=== PATIENT | female | born 1950 | race Caucasian/White ===

== ENCOUNTER 2019-09-20 14:00 | Day surgery (SDC) | payer MEDICARE, OTHER ==
[2019-09-20] VITALS (9 sets, daily range): BP systolic 92–147; BP diastolic 43–61
[~2019-09-20] VITALS: Ht 157.5 cm; Wt 53.0 kg
[~2019-09-20 14:00] MED LIST: HYDR-4383 PO
[2019-09-20] MEDS ORDERED: ASPI-529 PO (14:29)
[2019-09-20] MEDS ORDERED: VITA1TAB20 PO (14:29)
[2019-09-20] MEDS ORDERED: PROP1DRO7 OP (14:29)
[2019-09-20] MEDS ORDERED: IBUP-2417 PO (14:29)
[2019-09-20] MEDS ORDERED: ACET325T55 PO (14:29)
[2019-09-20] MEDS ORDERED: BETA1TAB18 PO (14:29)
[2019-09-20 14:57] LABS: BASOPHILS # (AUTO) 0.1 X10'3 (0-0.2); BASOPHILS % (AUTO) 1.3 % (0-1); EOSINOPHILS # (AUTO) 0.1 X10'3 (0-0.9); EOSINOPHILS % (AUTO) 2.6 % (0-6); HEMATOCRIT 35.1 % (35.0-45.0); HEMOGLOBIN 11.8 g/dl (12.0-16.0); LYMPHOCYTES # (AUTO) 1.4 X10'3 (1.1-4.8); LYMPHOCYTES % (AUTO) 27.8 % (21-51); MEAN CORPUSCULAR HEMOGLOBIN 30.8 PG (27.0-31.0); MEAN CORPUSCULAR HGB CONC 33.6 g/dL (33.0-36.5); MEAN CORPUSCULAR VOLUME 91.6 FL (78-98); MEAN PLATELET VOLUME 7.2 FL (7.4-10.4); MONOCYTES # (AUTO) 0.5 X10'3 (0-0.9); MONOCYTES % (AUTO) 9.6 % (2-12); NEUTROPHILS % (AUTO) 58.7 % (42-75); PLATELET COUNT 297 X10'3 (140-440); RED BLOOD COUNT 3.83 X10'6 (4.20-5.60); RED CELL DISTRIBUTION WIDTH 12.8 % (11.5-14.5); WHITE BLOOD COUNT 5.1 X10'3 (4.5-11.0)
[2019-09-20 15:07] LABS: ALBUMIN 3.5 G/DL (3.4-5.0); ANION GAP 9 (8-16); BLOOD UREA NITROGEN 14 MG/DL (7-18); BUN/CREATININE RATIO 19.7 (6.6-38.0); CALCIUM 8.5 MG/DL (8.5-10.1); CHLORIDE 105 MMOL/L (99-107); CREATININE 0.71 MG/DL (0.40-0.90); GLUCOSE 87 MG/DL (70-104); POTASSIUM 3.4 MMOL/L (3.5-5.1); SODIUM 140 MMOL/L (135-145); TOTAL CARBON DIOXIDE 25.8 MMOL/L (24-32); eGFR 82 ML/MIN
[2019-09-20] MEDS ORDERED: LORazepam 0.5 MG tablet PO PRN (15:10)
[2019-09-20] MEDS ORDERED: normal saline 1,000 ML IV SCH (15:10)
[2019-09-20] MEDS ORDERED: diphenhydrAMINE 25mg capsule PO PRN (15:10)
[2019-09-20] MEDS ORDERED: nitroGLYCERIN-Tridil 50MG/D5W 250 ML IV ONE (15:24)
[2019-09-20] MEDS ORDERED: fentaNYL/PF 50MCG/1 ML 2ML syringe ONE ×2 (15:24→16:04)
[2019-09-20] MEDS ORDERED: iohexol 350MG/ML 100ml bottle IV ONE (15:24)
[2019-09-20] MEDS ORDERED: LIDOcaine 1% (10mg/ml)w/preservative injection 20ml MDV ONE (15:24)
[2019-09-20] MEDS ORDERED: midazolam 2 mg/2 ml injection ONE ×2 (15:24→16:04)
[2019-09-20] MEDS ORDERED: verapamil 2.5 mg/ml inj IV ONE (15:24)
[2019-09-20] MEDS ORDERED: heparin 1,000unit/ml 10ml vial 10 ML ONE (15:24)
[2019-09-20] MEDS ORDERED: HYDROcodone/acetaminophen 10/325mg tab PO PRN (17:15)
[2019-09-20] MEDS ORDERED: OXAZEpam 15mg capsule PO PRN (17:15)
[2019-09-20] MEDS ORDERED: HYDROcodone/acetaminophen 5mg/325mg tablet PO PRN (17:15)
[2019-09-20] MEDS ORDERED: ondansetron/PF 4mg/2ml inj IV PRN (17:15)
[2019-09-20] MEDS ORDERED: acetaminophen 325mg tablet PO PRN (17:15)
[2019-09-20] MEDS ORDERED: proCHLORperazine 10 MG/2 ml inj IV PRN (17:15)
== END 2019-09-20 19:35 | disposition home or self-care (01) ==
LOC: SSTAY O 14:00
PROVIDERS: ATTEND Internal Medicine Interventional Cardiology
DX: R94.39 Abnormal result of other cardiovascular function study (principal); I25.10 Atherosclerotic heart disease of native coronary artery without angina pectoris; J44.9 Chronic obstructive pulmonary disease, unspecified; M81.0 Age-related osteoporosis without current pathological fracture; Z79.01 Long term (current) use of anticoagulants; Z79.899 Other long term (current) drug therapy; Z88.8 Allergy status to other drugs, medicaments and biological substances
CPT/HCPCS: 36415; 80048; 85025; 85610; 93005; 93458; 99152; 99153; C1769; C1894; J1644; J2001; J2250; J3010; Q9967; A4620; A5120; J3490

== ENCOUNTER 2024-12-28 11:00 | Emergency (ER) | payer MEDICARE, OTHER ==
[~2024-12-28] VITALS: Ht 157.5 cm; Wt 55.3 kg
[~2024-12-28 11:00] MED LIST changes: +ACET325T55 PO; +ASPI-529 PO; +BETA1TAB18 PO; -HYDR-4383 PO; +IBUP-2417 PO; +PROP1DRO7 OP; +VITA-290 PO
--- NOTE | 2024-12-28 11:20 | Physician Documentation ---
History of Present Illness Chief Complaint: Abdominal Pain Stated Complaint: ABD PAIN Time Seen by MD: 11:17 Primary Medical Doctor: Dr. 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 She endorses that she is getting abdominal pain for the past 2 days, more over the lower quadrants of the abdomen, near the suprapubic region and bilateral iliac fossa, without any aggravating and relieving factors. She endorses nausea but without vomiting. She reports fever high-grade with chills and recorded temperature of 99.5 at home, abdominal distention. She complained of increased frequency of the micturition. She denied nocturia, urgency, urinary retention. She endorses that he had a couple of episodes of loose stools and subsided and now she is getting regular stools. She had a couple of episodes of suprapubic pain in the last month but she did not take any antibiotic and she took some alternative medicine. She had a colonoscopy in 2009 which showed colonic diverticulosis and internal hemorrhoids. Medication Reconciliation Allergies: Coded Allergies: ephedrine (Verified Allergy, Severe, 02/11/13) pseudoephedrine (Unverified Allergy, Unknown, 09/20/19) Scheduled Aspirin (Baby Aspirin), 81 MG PO DAILY, (Reported) Beta-Carotene(A) W-C & E/Min* (Ocuvite Tablet*), 1 TAB PO DAILY, (Reported) Ibuprofen (Ibuprofen), 200 MG PO TID, (Reported) Vitamin B Complex (Vitamin B Complex), 1 EACH PO DAILY, (Reported) Scheduled PRN Acetaminophen (Acetaminophen), 1 TAB PO Q4HPRN PRN for pain or fever, (Reported) Miscellaneous Medications Propylene Glycol/Peg 400 (Systane 0.3-0.4% Eye Drops), 1 EACH OP, (Reported) Past Medical History Past Medical History: Cataracts, Hemorrhoids, Osteoporosis Other Past Medical History: Age-related macular degeneration Diverticulosis Past Surgical History: abdominal surgery, other Other Past Surgical History: Laparoscopic surgery for endometriosis, eye surgery Smoking Status: Current every day smoker Alcohol Use: None Drug Use: none Lives In: Home Occupation: employed Review of Systems Constitutional: Reports: chills, fever, weakness Eyes: Reports: no symptoms reported ENT: Reports: no symptoms reported Respiratory: Reports: no symptoms reported Cardiovascular: Reports: no symptoms reported Gastrointestinal: Reports: abdomen distended, abdominal pain, nausea, diarrhea Genitourinary: Reports: frequency, hematuria, pain Female Genitalia: Reports: pelvic pain Neurological: Reports: no symptoms reported Musculoskeletal: Reports: no symptoms reported Integumentary: Reports: no symptoms reported Allergic/Immunologic: Reports: no symptoms reported Hematologic/Lymphatic: Reports: no symptoms reported Endocrine: Reports: no symptoms reported Psychiatric: Reports: no symptoms reported Physical Exam Vital Signs: Temperature: 97.1, Source: Temporal, Heart Rate: 87, Respiratory Rate: 16, BP: 139/58, Pulse Oximetry: 99, Weight: 55.300 Oxygen Flow Rate: 0 Pulse Oximetry Reflects: adequate oxygenation General Appearance: alert, WD/WN, no apparent distress EENT: PERRL/EOMI, normal ENT inspection, TMs normal, moist mucous membranes Progress Results/Orders Results/Orders Orders - LEXIE CINTRON RES Add On Test (12/28/24 11:18) Culture Blood (12/28/24 11:18) Lacticsepsis (12/28/24 11:18) Vital Signs 12/28/24 11:02 Temp 97.1 Pulse 87 Resp 16 B/P (MAP) 139/58 Pulse Ox 99 O2 Flow Rate 0 Medical Decision Making Additional information obtaine: old records Findings Pain abdomen likely secondary to interstitial cystitis versus acute diverticulitis Vitals are stable. CBC and CMP showed nothing much changes but urinalysis showed large occult blood in urine. Procalcitonin and lactic acid is normal. Considering her age and symptoms with chronic microscopic hematuria and chronic recurrent suprapubic pain, patient may have probably interstitial cystitis or possible urinary bladder cancerWe are evaluating patient with CT abdomen and pelvis and we are more concerned about the chronic bladder involvement including urothelial cancer Differential Dx:Considerations: Other (See the body of supervisory note for differential diagnosis) Departure Disposition: HOME / SELF CARE / HOMELESS Impression: Primary Impression: Diverticulitis Condition: Improved Discharge Instructions: Diverticulitis Referrals: NO PRIMARY CARE PROVIDER (PCP) Prescriptions Amox Tr/Potassium Clavulanate (Augmentin 875-125 Tablet) 1 Each Tablet 1 TAB PO Q12H for 10 Days, #20 TAB Prov: ADRIAN HARPER DO 12/28/24 Education Educated: Patient Educated regarding: diagnosis, treatment, prognosis, need for follow up Additional Comment Seen with PA/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 I have personally participated in care of this patient, has been present during critical and/or coates portions of the patient's service, participated in the evaluation, and provided major portion of medical decision-making, independently interpreted imaging and laboratory studies and participated in disposition of this patient. In brief, this is a 72-year-old female who went to the [facility] to be evaluated for lower abdominal pain that has been present for the last three days. No obvious trigger provocation. The particular palliating factors, aggravated by breathing and walking. She did not attempt to treat it with the anything other than [id number] medications they did not significantly help. She denies any nausea, vomiting, diarrhea, denies any dysuria hematuria. She reports history of colonoscopy in 2011 at which point she was diagnosed with a diverticulosis, never had diverticulitis. GENERAL: Awake, alert, oriented, GCS 15, no apparent distress, non-toxic appearing, answers questions, follows commands appropriately. Examined in bed 6. HEENT: Atraumatic, normocephalic, pupils equal, extraocular muscles intact, sclerae anicteric, mucus membranes moist, oropharynx is clear, no stridor. NECK: supple, full active range of motion, trachea midline, no thyromegaly, no lymphadenopathy, no JVD. CARDIOVASCULAR: regular rate/rhythm, no murmurs/gallops/rubs, Pulses are 2+ in all extremities and symmetric. Capillary refill less than 2 seconds. PULMONARY: Nonlabored, good air movement ,no respiratory distress, speaking in full sentences, clear to auscultation bilaterally, no wheezing, no ronchi, no rales, no accessory muscle use. GASTROINTESTINAL: Soft, lower abdominal tenderness to palpation reproducing chief complaint without guarding or rebound, non-distended, normal active bowel sounds, no organomegaly, no pulsatile masses, no CVA tenderness. NEUROLOGIC: Lucid with normal mental status. Normal facial symmetry. Moves all extremities symmetrically and with purpose. No truncal ataxia. Speech is fluid without evidence of dysarthria or aphasia, no focal deficits appreciated. MUSCULOSKELETAL: There is full range of motion of all extremities. There is no joint pain or joint swelling or joint erythema. There is no muscle pain or tenderness or swelling. EXTREMITIES: warm, well-perfused, no cyanosis, no clubbing, no edema, no acute deformities. Skin: warm, dry, no rashes or lesions, no jaundice, no petechiae orpurpura. No ecchymosis. PSYCHIATRIC: Normal affect, normal insight, normal concentration. Focused exam: [] Facility Status: ED Holds, [facility] process The plan was discussed with the patient, who demonstrates clear understanding of the plan and is in agreement with the plan unless otherwise noted in the chart. All questions have been answered, all concerns were addressed unless otherwise documented. I was available throughout their ED stay for frequent reassessment and questions. Differential Diagnoses (considered and possible or likely): [Differential diagnosis considered includes acute appendicitis, acute cholecystitis, pancreatitis, gastritis, PUD, diverticulitis, mesenteric ischemia, abdominal aortic aneurysm, bowel obstruction, enteritis, colitis, fecal impaction, volvulus, IBS, inflammatory bowel disease, specific food intolerance, peritonitis, perforated viscous, malignancy, UTI, abscess, and abdominal pain NOS. Pelvic source of pain was also considered including endometritis, dysmenorrhea, ovarian cyst, ovarian torsion, PID, TOA, cervicitis, vaginitis, or uterine fibroid. History, physical exam, and workup exclude many of the more serious causes listed above. ] ??Differential Diagnoses (considered and unlikely, not requiring evaluation currently): [Aortic/great vessels dissection was considered but it is unlikely based on absence of ripping, tearing, migratory chest pain, absence of syncope or focal neurologic deficits, physical examination indicating equal and symmetric pulses.] MDM Data Please see HPI for the following: Independent Historians and external Records Review. Historian: [Patient] Independent Historians: ?[Record review] Medication Management: [Reviewed medication list] Social History and determinants: [Reviewed] Please see the body of the note for the following: Any independent interpretations of ECG, imaging studies. All vitals signs/haemodynamics, ordered tests were independently reviewed and interpreted by myself. Nursing triage complaint and vitals reviewed, additional nursing notes were reviewed as available and I agree unless otherwise noted or documented in contradiction in the chart Vital Signs: Independently reviewed Labs: Independently interpreted Imaging: Independently interpreted Old Medical Records: Independently reviewed, see HPI for relevant summary and information Pulse Oximetry: [97%] interpreted as [normal on room air] by me [Antiquer: [Regular Rate, Regular rhythm, no ectopy, NSR] reviewed and interpreted by me] Additionally notably showing: [Hemodynamics reviewed. The patient isn't febrile, not tachycardic, no evidence of hypotension respiratory distress. CBC normal, no leukocytosis, no significant neutrophilic predominance. Metabolic panel shows dehydration. Lipase is normal. Procalcitonin is normal. Troponin is negative. Lactic acid was normal. UA is nondiagnostic for UTI. Advanced imaging shows sigmoid diverticulitis.] Tests considered but not ordered include: [Not applicable] Social Determinants of Health Impact: Patient was evaluated in [facility] [place] access to healthcare due to below par ratio of patient to medical providers. [] Comorbid Conditions Impacting Present Evaluation and Care/Treatment: [History of diverticulosis] Management Discussions with other Healthcare Providers: [None] Treatment and Disposition Medication Management (Given or considered): [Pain management was offered, patient declined. Antibiotics were initiated.]. See EMR for details Consideration for Hospitalization/Escalation/Deescalation of Care: Admission for observation has been considered, [however the patient is able to tolerate p.o., their symptoms are controlled, they are able to rely on oral medications, and their chief complaint/diagnosis can be managed on outpatient basis.] ?ED Course:?[No clinical deterioration] ?Shared decision making:?[Patient is hemodynamically stable for discharge home with follow with their primary care provider. [ ] Specific and cautious return precautions provided and discussed with full understanding. Any incidental findings were also discussed and follow up recommendations given. [] All questions answered. Patient/family were able to verbalize back return precautions. Patient/family agree to plan. Copies of imaging and laboratory studies were provided.] Code status:?FULL Please see the full Electronic Medical Record for full details of nursing documentation, medications list, other records of complete past medical history and conditions, vital signs, laboratory studies, and any radiologic study interpretations by radiologists. Portions of this note were completed using [employer] dictation software and as a result there may exist minor errors in spelling. I have reviewed elements of past family and social history and agree as included in note. Signature Scribe Signature: No scribe Attestation: Date: Dec 28, 2024 Time: 12:08 This note accurately reflects clinical decisions, work performed by myself, DO ABDULAZIZ Salazar VENKATESH, RES Dec 28, 2024 11:20 ADRIAN HARPER DO Dec 28, 2024 12:08
[2024-12-28 11:27] LABS: LEUKOCYTE ESTERASE ,URINE NEGATIVE (Neg); NITRITES, URINE NEGATIVE (Neg); OCCULT BLOOD,URINE LARGE (Neg)
[2024-12-28 11:33] LABS: MEAN PLATELET VOLUME 7.2 FL (7.4-10.4); RED CELL DISTRIBUTION WIDTH 13.3 % (11.5-14.5)
[2024-12-28 11:35] LABS: UA COLLECTION TYPE CLN CATCH MIDSTREAM
[2024-12-28 11:37] LABS: SQUAMOUS EPITHELIAL CELL,UR FEW /LPF (FEW)
[2024-12-28 11:50] LABS: CREATININE 0.84 MG/DL (0.40-0.90); TOTAL CARBON DIOXIDE 29.5 MMOL/L (24-32); eCRCL 48 ML/MIN; eGFR 67 ML/MIN
[2024-12-28] MEDS ORDERED: iohexol 300mg/ml 100ml inj. ONE (11:55)
--- NOTE | 2024-12-28 12:38 | RADIOLOGY REPORT ---
CT CT ABDOMEN PELVIS W/ IV CONTRAST INDICATION: lower abd pain EXAM DATE: 12/28/2024 12:05 PM COMPARISON: None RADIATION DOSE: CTDIvol: 9 mGy, DLP: 392 mGy*cm PROCEDURE: Helical CT images were obtained of the abdomen and pelvis with IV contrast Sagittal and coronal reconstructions are provided. ORAL CONTRAST: None. ADDITIONAL IMAGES / REFORMATS: None All CT scans at this medical facility are performed using dose modulation techniques as appropriate to a performed exam including the following: Automated exposure control was utilized; adjustment of the MA and/or KV according to patient size; and use of iterative reconstruction technique. FINDINGS: LUNG BASE: Mild bibasilar atelectasis. LIVER: 7 mm left hepatic cyst too small to characterize. GALLBLADDER AND BILIARY TREE: No calcified gallstones. Normal caliber wall. No intra- or extrahepatic biliary ductal dilation. PANCREAS: Normal. SPLEEN: Normal. BOWEL: Moderate colonic diverticulosis with mild sigmoid colonic diverticulitis. Normal appendix. ADRENALS: Normal. KIDNEYS AND URETER: Normal. BLADDER: Normal. REPRODUCTIVE ORGANS: Normal. LYMPH NODES:No lymphadenopathy. PERITONEUM: No ascites or free air. No other fluid collection. VESSELS: Scattered atherosclerotic calcifications are noted. RETROPERITONEUM: Normal. ABDOMINAL WALL: Normal. BONES: Scattered osseous degenerative changes are noted. IMPRESSION: Moderate colonic diverticulosis with mild sigmoid colonic diverticulitis.
[2024-12-28] MEDS ORDERED: AMOX-117 PO (12:52)
[2024-12-28] MEDS: levoFLOXACIN-Levaquin 500mg/D5 100 ML IV ONE (13:08)
[2024-12-28] MEDS: metroNIDAZOLE-Flagyl 500mg/NS 100 ML IV ONE (13:09)
[2024-12-28 14:50] VITALS: BP 138/80; PULSE 84; RESP 16; TEMP 97.1; O2SAT 97
== END 2024-12-28 14:45 | disposition home or self-care (01) ==
LOC: ER 11:00
DX: K57.30 Diverticulosis of large intestine without perforation or abscess without bleeding (principal); F17.200 Nicotine dependence, unspecified, uncomplicated; Z87.19 Personal history of other diseases of the digestive system; Z88.8 Allergy status to other drugs, medicaments and biological substances; Z79.82 Long term (current) use of aspirin; Z79.899 Other long term (current) drug therapy
CPT/HCPCS: 74177; 80053; 81001; 83605; 83690; 84145; 84484; 85025; 87040; 96365; 96368; 99285; J1956; J3490; J7030; Q9967

== ENCOUNTER 2025-01-22 10:50 | Emergency (ER) | payer MEDICARE, OTHER ==
[~2025-01-22] VITALS: Ht 157.5 cm; Wt 55.1 kg
[2025-01-22 11:07] VITALS: BP 128/65; PULSE 90; RESP 18; TEMP 97.9; O2SAT 98
--- NOTE | 2025-01-22 11:58 | RADIOLOGY REPORT ---
INDICATION: LT. ANKLE PAIN TECHNIQUE: DI ANKLE, COMPLETE(3VW MIN)ANKLECPLT Comparison: None FINDINGS/IMPRESSION: No radiographic evidence for acute fracture or dislocation. No significant soft tissue edema. No radiopaque foreign body.
[2025-01-22] MEDS ORDERED: DICL20GE TOP (13:05)
--- NOTE | 2025-01-22 13:05 | Physician Documentation ---
History of Present Illness ~ Chief Complaint: Ankle pain Stated Complaint: L ANKLE PAIN Time Seen by MD: 12:41 Primary Medical Doctor: Dr. Hermosillo HPI This is a 74-year-old female who presents with two weeks of progressively worsening left posterior ankle pain, patient reports the pain was non tympanic with no recent injuries or rolling of her ankle. Patient reports it is worse after walking and working [place]. Reports no other acute symptoms or concerns. Tetanus witin 5 years: Yes Medication Reconciliation Allergies: Coded Allergies: ephedrine (Verified Allergy, Severe, 02/11/13) pseudoephedrine (Unverified Allergy, Unknown, 09/20/19) Scheduled Aspirin (Baby Aspirin), 81 MG PO DAILY, (Reported) Beta-Carotene(A) W-C & E/Min* (Ocuvite Tablet*), 1 TAB PO DAILY, (Reported) Diclofenac Sodium (Voltaren Arthritis Pain), 1 APPLIC TOP BID Ibuprofen (Ibuprofen), 200 MG PO TID, (Reported) Vitamin B Complex (Vitamin B Complex), 1 EACH PO DAILY, (Reported) Scheduled PRN Acetaminophen (Acetaminophen), 1 TAB PO Q4HPRN PRN for pain or fever, (Reported) Miscellaneous Medications Propylene Glycol/Peg 400 (Systane 0.3-0.4% Eye Drops), 1 EACH OP, (Reported) Past Medical History Past Medical History: Cataracts, Hemorrhoids, Osteoporosis Past Surgical History: abdominal surgery, other Other Past Surgical History: Laparoscopic surgery for endometriosis, eye surgery Alcohol Use: None Drug Use: none Lives In: Home Occupation: employed Review of Systems ROS As stated above in the HPI, otherwise all systems are reviewed and negative. Physical Exam Vital Signs: Temperature: 97.9, Source: Temporal, Heart Rate: 90, Respiratory Rate: 18, BP: 128/65, Pulse Oximetry: 98, Weight: 55.100 Oxygen Flow Rate: 0 Physical Exam VITALS: Reviewed and as above. GENERAL: Alert, nontoxic appearing, no apparent distress. 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 ANKLE PAIN TECHNIQUE: DI ANKLE, COMPLETE(3VW MIN)ANKLECPLT Comparison: None FINDINGS/IMPRESSION: No radiographic evidence for acute fracture or dislocation. No significant soft tissue edema. No radiopaque foreign body. I have reviewed and agree with the radiology report. I have reviewed and interpreted the imaging as: No fracture or dislocation Electronically Signed by:OSIRIS LEVY MD Date & Time: 01/22/25 115 Dictated by: OSIRIS LEVY MD Dictation date and time: 01/22/25 1156 I have reviewed and agree with the radiology report. I have reviewed and interpreted the imaging as: No fracture or dislocation Medical Decision Making Additional information obtaine: N/A Findings This is a 74-year-old female presented with two weeks of progressively worsening left posterior ankle pain without reported recent trauma or injury with the pain worse with prolonged activity, physical exam demonstrated tenderness to the posterior aspects of heal without evidence of Achilles tendon involvement, suspect overuse injury. Shared decision-making patient placed in a ankle brace and provided crutches and a rest ice compression and elevation strategy will be employed patient has follow up promptly with her primary care provider for further imaging orthopedic referral, patient reported follow up appointment who is scheduled Wednesday this week. Patient is otherwise well-appearing in the limb is neurovascularly intact she is appropriate for outpatient. Patient provided careful return to care precautions, follow up instructions, and home care instructions which she verbalized understanding of General Diff Dx:Considerations: Include: Abrasion, Contusion, Fracture, Hematoma, Laceration, Malunion, Neurovascular injury, Sprain, Ulcer Knee Diff Dx:Considerations: Unlikely: Abrasion, Arthritis, Contusion, DJD, Fracture-femur, Fracture-fibula, Fracture-patella, Fracture-tibia, Gout, Hematoma, Laceration, Meniscus injury, Neurovascular injury, Open fracture, Rheumatoid arthritis, Septic, Sprain, Sprain-MCL, Sprain-LCL, Sprain-ACL, Sprain-PCL, Other Ankle Diff Dx:Considerations: Include: Abrasion, Arthritis, Contusion, DJD, Fracture-metatarsal, Fracture-fibula, Fracture-tarsal, Fracture-tibia, Gout, Hematoma, Laceration, Neurovascular injury, Rheumatoid arthritis, Sprain, Septic Foot Diff Dx:Considerations: Include: Abrasion, Arthritis, Cellulitis, Contusion, DJD, Fracture-metatarsal, Fracture-phalynx, Fracture-tarsal, Gout, Hematoma, Ingrown toenail, Laceration, Neurovascular injury, Sprain, Septic, Subungual hematoma Toe Diff Dx:Considerations: Unlikely: Abrasion, Cellulitis, Contusion, Dislocation, Felon, Fracture, Hematoma, Laceration, Neurovascular injury, Open fracture, Paronychia, Subungual hematoma, Other Departure Time of Disposition: 13:03 Disposition: 01 HOME / SELF CARE / HOMELESS Impression: Primary Impression: Left ankle pain Qualified Codes: M25.572 - Pain in left ankle and joints of left foot Condition: Improved Discharge Instructions: Ankle Pain, RICE Therapy for Routine Care of Injuries Additional Instructions: Please use the provided crutches to rest your ankle, wear the ankle brace for comfort, you may bear weight and ambulate as tolerated. Follow up as scheduled with your primary care provider for referral for physical therapy and or further imaging. Please use the Voltaren (diclofenac) gel for pain. Please follow up with your primary care provider in the next few days. Please return to the emergency department for any new or worsening concerning symptoms. Referrals: NO PRIMARY CARE PROVIDER (PCP) Prescriptions Diclofenac Sodium (Voltaren Arthritis Pain) 1 % Gel..gram. 1 APPLIC TOP BID for pain for 10 Days, #30 GM Prov: HUSEYIN HO 01/22/25 Education Educated: Patient Educated regarding: diagnosis, treatment, prognosis, need for follow up Signature Scribe Signature: No scribe Attestation: The note accurately reflects work and decisions made by me.RODOLFO Denise 01/23/25 09:18 HUSEYIN HO Jan 22, 2025 13:05
== END 2025-01-22 13:26 | disposition home or self-care (01) ==
LOC: ER 10:50
DX: M25.572 Pain in left ankle and joints of left foot (principal); Z87.19 Personal history of other diseases of the digestive system; Z88.8 Allergy status to other drugs, medicaments and biological substances; Z79.82 Long term (current) use of aspirin; Z79.899 Other long term (current) drug therapy
CPT/HCPCS: 29530; 73610; 99283